=== PATIENT | male | born 1955 | race Caucasian/White ===

== ENCOUNTER 2022-07-13 08:30 | Emergency (ER) | payer OTHER ==
[~2022-07-13] VITALS: Ht 167.6 cm; Wt 72.6 kg
[2022-07-13 09:47] LABS: BASOPHILS ABSOLUTE AUTO 0.05 K/mm3 (0.00-0.23); BASOPHILS PERCENT AUTO 1 % (0-2); EOSINOPHILS ABSOLUTE AUTO 0.21 K/mm3 (0.00-0.68); EOSINOPHILS PERCENT AUTO 3 % (0-6); Hematocrit 44.7 % (37.0-53.0); Hemoglobin 15.6 g/dL (13.5-17.5); IMMATURE GRAN ABSOLUTE AUTO 0.02 K/mm3 (0.00-0.10); IMMATURE GRAN PERCENT AUTO 0 % (0-1); LYMPHOCYTES ABSOLUTE AUTO 1.17 K/mm3 (0.84-5.20); LYMPHOCYTES PERCENT AUTO 15 % (21-46); MONOCYTES ABSOLUTE AUTO 0.58 K/mm3 (0.16-1.47); MONOCYTES PERCENT AUTO 8 % (4-13); Mean Corpuscular HGB 32.5 pg (26.0-34.0); Mean Corpuscular HGB Conc 34.9 g/dL (31.5-36.5); Mean Corpuscular Volume 93 fL (80-100); Mean Platelet Volume 9.7 fL (9.1-12.4); NEUTROPHILS PERCENT AUTO 73 % (41-73); Platelet Count 299 K/mm3 (150-400); RDW Coefficient Variation 13.6 % (11.7-14.2); RDW Standard Deviation 46.8 fL (35.1-46.3); White Blood Cell Count 7.63 K/mm3 (4.00-11.30)
[2022-07-13 09:57] LABS: Albumin, Blood 3.8 g/dL (3.4-5.0); Albumin/Globulin Ratio 1.1 (0.8-1.8); Bilirubin, Total 0.5 mg/dL (0.1-1.0); Bun/Creatinine Ratio 15.1 (12.0-20.0); Calcium, Blood 8.8 mg/dL (8.5-10.1); Creatinine, Blood 0.86 mg/dL (0.60-1.20); Globulin, Blood 3.5 g/dL (2.2-4.0); Potassium, Blood 4.3 mmol/L (3.5-5.5); Total Protein, Blood 7.3 g/dL (6.4-8.2)
[2022-07-13] MEDS ORDERED: Prednisone20 MG PO (12:05)
[2022-07-13] MEDS ORDERED: Indomethacin50 MG PO (12:05)
== END 2022-07-13 12:15 | disposition home or self-care (01) ==
LOC: ER 08:30
PROVIDERS: Physician Assistant
DX: R07.89 Other chest pain (principal); M25.561 Pain in right knee; M10.9 Gout, unspecified
CPT/HCPCS: 71045; 80053; 84484; 85025; 93005; 93010; 99285-25; A9270; J7512

== ENCOUNTER 2022-10-10 06:34 | Day surgery (SDC) | payer OTHER ==
[~2022-10-10] VITALS: Ht 167.6 cm; Wt 79.8 kg
[~2022-10-10 06:34] MED LIST: ASPI81CH PO; Indomethacin50 MG PO; Isosorbide Mono30 MG PO; METO25ER PO; Prednisone20 MG PO
--- NOTE | 2022-10-10 11:00 | NUR ---
Patient arrived to recovery room, alert and oriented. R radial access site C/D/I, soft/nontender, noevidence of hematoma. TR band fully inflated. VSS on room air.
--- NOTE | 2022-10-10 11:36 | NUR ---
Patient ambulating to bathroom without difficulty. Patient voiding without difficulty. Patient tolerated PO intake well. R radial site C/D/I soft/nontender, no evidence of hematoma. VSS on room air.
[2022-10-10] MEDS ORDERED: METO50ER PO (11:46)
[2022-10-10] MEDS ORDERED: ATOR80 PO (11:47)
--- NOTE | 2022-10-10 12:00 | NUR ---
2 CC OF AIR REMOVED FROM TR BAND. R RADIAL SITE C/D/I, SOFT/NONTENDER, NO EVIDENCE OF HEMATOMA. PATIENT SITTING UPRIGHT IN RECLINER, CONVERSING APPROPRIATELY. VSS ON ROOM AIR AND TOLERATING PO INTAKE WELL. PATIENT DENYING ANY CHEST PAIN.
--- NOTE | 2022-10-10 12:30 | NUR ---
Patient discharge instructions reviewed with patient. All questions were answered. Prescriptions called to [facility] pharmacy. TR band in place, site C/D/I, soft/nontender, no evidence of hematoma. VSS on room air
--- NOTE | 2022-10-10 12:48 | NUR ---
pt ambulated to restroom w/o assistance.
--- NOTE | 2022-10-10 12:57 | NUR ---
tr band fully deflated. no bleeding noted. site soft and non-tender per pt.
--- NOTE | 2022-10-10 13:30 | NUR ---
pt given dc instructions and verbalized understanding. iv out. pt changed into clothes. cloth dot, arm board and sling applied. pt taken to [facility] via w[facility]. friend to take pt home.
== END 2022-10-10 12:45 | disposition home or self-care (01) ==
LOC: ECHO 06:34 → MHTC 06:34 → ECHO 07:00 → EDSTATUS 07:00 → MHTC 09:05
DX: I25.118 Atherosclerotic heart disease of native coronary artery with other forms of angina pectoris (principal); E78.5 Hyperlipidemia, unspecified; F17.200 Nicotine dependence, unspecified, uncomplicated; I10 Essential (primary) hypertension
CPT/HCPCS: 76937; 93458; 99152; 99153; A9270; C1769; C1887; C1894; J1644; J2250; J3010; J7030; J7050; Q9967

== ENCOUNTER 2022-10-10 07:00 | Day surgery (SDC) | payer OTHER ==
[2022-10-10] MEDS ORDERED: METO50ER PO (11:46)
[2022-10-10] MEDS ORDERED: ATOR80 PO (11:47)
== END 2022-10-16 23:09 | disposition home or self-care (01) ==
LOC: MHTC 07:00
DX: I25.119 Atherosclerotic heart disease of native coronary artery with unspecified angina pectoris (principal); E78.5 Hyperlipidemia, unspecified; F17.200 Nicotine dependence, unspecified, uncomplicated
CPT/HCPCS: 93306

== ENCOUNTER 2023-01-31 09:42 | Inpatient (IN) | payer OTHER ==
[2023-01-31] VITALS (18 sets, daily range): BP systolic 82–129; BP diastolic 36–103
[~2023-01-31] VITALS: Ht 167.6 cm; Wt 83.6 kg
[~2023-01-31 09:42] MED LIST changes: +ATOR80 PO; +METO50ER PO
[2023-01-31 11:13] LABS: BASOPHILS ABSOLUTE AUTO 0.05 K/mm3 (0.00-0.23); BASOPHILS PERCENT AUTO 0 % (0-2); EOSINOPHILS PERCENT AUTO 0 % (0-6); Hematocrit 36.1 % (37.0-53.0); Hemoglobin 12.1 g/dL (13.5-17.5); IMMATURE GRAN ABSOLUTE AUTO 0.15 K/mm3 (0.00-0.10); IMMATURE GRAN PERCENT AUTO 1 % (0-1); LYMPHOCYTES ABSOLUTE AUTO 0.61 K/mm3 (0.84-5.20); LYMPHOCYTES PERCENT AUTO 4 % (21-46); MONOCYTES PERCENT AUTO 8 % (4-13); Mean Corpuscular HGB 32.9 pg (26.0-34.0); Mean Corpuscular HGB Conc 33.5 g/dL (31.5-36.5); Mean Corpuscular Volume 98 fL (80-100); Mean Platelet Volume 10.1 fL (9.1-12.4); NEUTROPHILS ABSOLUTE AUTO 11.81 K/mm3 (1.96-9.15); NEUTROPHILS PERCENT AUTO 86 % (41-73); NRBC ABSOLUTE 0.19 K/mm3 (0.00-0.02); NRBC Auto 1.4 /100 WBC (0.0-0.2); Platelet Count 277 K/mm3 (150-400); RDW Coefficient Variation 19.9 % (11.7-14.2); RDW Standard Deviation 69.1 fL (35.1-46.3); Red Blood Cell Count 3.68 M/mm3 (4.30-5.90); White Blood Cell Count 13.72 K/mm3 (4.00-11.30)
[2023-01-31 11:41] LABS: Albumin, Blood 2.1 g/dL (3.4-5.0); Albumin/Globulin Ratio 0.6 (0.8-1.8); Bilirubin, Direct 7.8 mg/dL (0.0-0.3); Bilirubin, Indirect 1.7 mg/dL (0.1-0.7); Bilirubin, Total 9.5 mg/dL (0.1-1.0); Bun/Creatinine Ratio 25.3 (12.0-20.0); Calcium, Blood 8.1 mg/dL (8.5-10.1); Creatinine, Blood 1.86 mg/dL (0.60-1.20); Globulin, Blood 3.5 g/dL (2.2-4.0); Magnesium, Blood 2.6 mg/dL (1.6-2.4); Potassium, Blood 5.5 mmol/L (3.5-5.5); Total Protein, Blood 5.6 g/dL (6.4-8.2)
[2023-01-31 15:36] LABS: International Normalized Ratio 1.19; Prothrombin Time Results 12.4 Sec (9.7-11.5)
[2023-01-31] MEDS ORDERED: METO25 PO (17:27)
--- NOTE | 2023-01-31 17:55 | NUR ---
arrival to pcu/shift summary patient arrived from ed via gurney and transported to pcu bed via slider sheet. patient is alert and oriented x4. perrla. patient reports no chest pain/pressure, no shortness of breath. patient reports left abdonminal pain rated at a 8 and received pain medications per emar, which brought the pain level down to 3. patient is jaundice in appearance. patient has scar/scab from bypass three weeks ago on chest, left arm, left knee. patient has scabs on abd from procedure. see admit assessment for more detials. patient has a bolus of fluid going for soft blood pressure. blood pressure improving with bolus. see vital signs section. tele sr 67. spo2 >95% on room air. plan of care is up to date. call light within reach. friends at bedside.
--- NOTE | 2023-01-31 22:52 | NUR ---
Contacted resident over patients BP not responding to the 3L LR bolus patient got prior to nightshift, along with 2 bags of albumin and maintenance LR at 100ml/hr. Patient is very painful t/o abdomen, jaundiced, having nausea/vomiting and poor circulation to extremities. Patient medicated for pain and given heating pad with minimal effect. Order for transfer to ICU8 obtained, report given to HERIBERTO Akbar.
[2023-02-01] VITALS (110 sets, daily range): BP systolic 79–146; BP diastolic 31–149
--- NOTE | 2023-02-01 00:08 | NUR ---
ARRIVAL TO ICU PT ARRIVED TO ICU 8 AT 5 FROM PCU D/T HYPOTENSION. LEVOPHED STARTED AND TITRATED UP TO 4MCG/MIN, GOAL IS TO HAVE MAP >60. HE IS A/O X4 AND ABLE TO MAKE HIS NEEDS KNOWN. PT RATING 8/10 ABD PAIN; PRN FENTANYL TO BE GIVEN. SPO2 >95% ON RA. HR NSR WITH RATE 70'S. MOD-SEVERE ABD DISTENTION NOTED WITH PAIN IN THE RUQ, LUQ, AND LLQ. BLADDER SCAN DONE THAT SHOWED 128ML. LR INFUSING AT 250ML/HR. SEE SHIFT ASSESSMENT FOR FULL ASSESSMENT.
[2023-02-01 03:04] LABS: BASOPHILS ABSOLUTE AUTO 0.03 K/mm3 (0.00-0.23); BASOPHILS PERCENT AUTO 0 % (0-2); EOSINOPHILS PERCENT AUTO 0 % (0-6); Hemoglobin 9.4 g/dL (13.5-17.5); IMMATURE GRAN ABSOLUTE AUTO 0.11 K/mm3 (0.00-0.10); IMMATURE GRAN PERCENT AUTO 1 % (0-1); LYMPHOCYTES ABSOLUTE AUTO 0.39 K/mm3 (0.84-5.20); LYMPHOCYTES PERCENT AUTO 4 % (21-46); MONOCYTES ABSOLUTE AUTO 0.83 K/mm3 (0.16-1.47); MONOCYTES PERCENT AUTO 8 % (4-13); Mean Corpuscular HGB 33.1 pg (26.0-34.0); Mean Corpuscular HGB Conc 32.4 g/dL (31.5-36.5); Mean Corpuscular Volume 102 fL (80-100); Mean Platelet Volume 10.5 fL (9.1-12.4); NEUTROPHILS ABSOLUTE AUTO 8.58 K/mm3 (1.96-9.15); NEUTROPHILS PERCENT AUTO 86 % (41-73); NRBC ABSOLUTE 0.29 K/mm3 (0.00-0.02); NRBC Auto 2.9 /100 WBC (0.0-0.2); Platelet Count 215 K/mm3 (150-400); RDW Coefficient Variation 19.5 % (11.7-14.2); Red Blood Cell Count 2.84 M/mm3 (4.30-5.90); White Blood Cell Count 9.94 K/mm3 (4.00-11.30)
--- NOTE | 2023-02-01 03:54 | NUR ---
UPDATE CALL MADE TO DR LOUISE. PT IS RESTLESS AND "MISERABLE", HE ONLY SLEEPS FOR ABOUT 30MIN AT A TIME AND THEN WAKES UP MOANING; PRN FENTANYL GIVEN AND MILDLY HELPFUL BRINGING PAIN DOWN FROM A 7 TO 5; PT WILL SIT UP AT THE EDGE OF THE BED AND THEN LAY BACK DOWN FREQUENTLY; WHEN ASKED IF HE NEEDS ANYTHING, HE STATES "I DON'T KNOW" FOLLOWED BY "I DON'T WANT TO " AND "THIS IS AWFUL". PT ALSO HAS EPISODES OF DYSPNEA, PT PLACED ON 2L NC WITH RELIEF. NEW ORDERS PROVIDED FOR PRN ATIVAN.
[2023-02-01 04:37] LABS: Albumin, Blood 2.7 g/dL (3.4-5.0); Albumin/Globulin Ratio 1.1 (0.8-1.8); Bilirubin, Total 9.1 mg/dL (0.1-1.0); Bun/Creatinine Ratio 21.9 (12.0-20.0); Calcium, Blood 7.2 mg/dL (8.5-10.1); Creatinine, Blood 2.56 mg/dL (0.60-1.20); Globulin, Blood 2.4 g/dL (2.2-4.0); Potassium, Blood 6.3 mmol/L (3.5-5.5); Total Protein, Blood 5.1 g/dL (6.4-8.2)
--- NOTE | 2023-02-01 04:57 | NUR ---
UPDATE CALL MADE TO DR DANI SAUNDERS CRITICAL POTASSIUM OF 6.3 THIS AM; ALSO INFORMED HIM OF DECREASE IN CO2, INCREASE IN CREATININE, DECREASE IN CA, AND DECREASE IN HBG. NEW ORDERS PROVIDED FOR CA GLUCONATE, REG INSULIN IV, AND 2 AMPS OF D50. MILD IMPROVEMENT FROM 0.5MG OF IV ATIVAN NOTED.
[2023-02-01 05:57] LABS: International Normalized Ratio 1.32; Prothrombin Time Results 13.6 Sec (9.7-11.5)
[2023-02-01 06:06] LABS: Source, Urine Straight Cath
[2023-02-01 06:15] LABS: Appearance, Urine Hazy (Clear); Blood, Urine 3+ (Neg); Color, Urine Amber (P-Yellow); Glucose Qualitative, Urine Neg (Neg); Ketones, Urine 1+ (Neg); Leukocyte Esterase, Urine 1+ (Neg); Nitrite, Urine Pos (Neg); Protein, Urine 3+ (Neg); Urobilinogen, Urine 2+ (Normal)
[2023-02-01 06:21] LABS: Bilirubin, Urine 3+ (Neg)
[2023-02-01 06:26] LABS: Amorphous Light (0-Heavy); Bacteria Many /hpf; Granular Casts 25-50 /lpf (0); Red Blood Cells, Urine 0-2 /hpf (0-2); Squamous Epithelial Cells Not Seen /hpf (Few); Transitional Epithelial Cells Few /hpf (0-Rare)
--- NOTE | 2023-02-01 07:23 | NUR ---
END OF SHIFT SUMMARY PT CONT TO FEEL "MISERABLE" AND MILDLY RESTLESS. HE DID NOT GET VERY MUCH SLEEP LAST NIGHT ONLY GETTING IN 30MIN NAPS AFTER PAIN MEDICATION GIVEN. HE IS A/OX4 BUT LETHARGIC. SPO2 >95% ON 2L NC. HR 70'S. BP CHALLENGING TO MAINTAIN; LEVOPHED INFUSING AT 8MCG/MIN; SBP NOW 100-110, DBP 40-50'S, MAP 60-68; 2+ EDEMA NOTED TO BILATERAL ANKLES AND NOW SLOWLY GOING UP TO HIS MID THIGH. ABD CONT TO BE DISTENDED AND PAINFUL; PRN FENTANYL GIVEN Q2HR WITH MILD RELIEF; PRN ZOFRAN AND REGAL GIVEN SEVERAL TIMES FOR NAUSEA, NO EMESIS; TOLERATING PO SIPS OF WATER AND ICE CHIPS WELL; NO BM THIS SHIFT; HYPOACTIVE BT. 2 BLADDER SCANS DONE THAT SHOWED <200ML IN BLADDER, STRAIGHT CATH DONE AND ONLY 70ML OF DARK CHRIS, CLOUDY URINE SENT TO LAB. LR INFUSING AT 250ML/HR. POWERGLIDE TO MARILU AND PIV IN RAC PATENT WITH + BLOOD RETURN FOR BOTH. CALL MADE TO DR LOUISE REGARDING INCREASE IN LACTIC ACID TO 8.6; NEW ORDERS PROVIDED FOR A GI, NEPHROLOGY, AND WEIGHER PRODUCTION CONSULT. REPORT GIVEN TO HERIBERTO ROWE.
[2023-02-01 09:30] LABS: Base Excess Venous -18.9 mmol/L; Bicarbonate Venous 11.1 mmol/L (24.0-30.0); PCO2 Venous 35.3 mmHg (38-42)
[2023-02-01 10:19] LABS: PO2 Arterial 367 mmHg (80-100)
[2023-02-01 11:13] LABS: HBSAG SCREEN Negative (Negative); HCV AB Non Reactive (Non Reactive); HEP A AB, IGM Negative (Negative); HEP B CORE AB, IGM Negative (Negative)
[2023-02-01 12:18] LABS: International Normalized Ratio 1.32; Prothrombin Time Results 13.6 Sec (9.7-11.5)
[2023-02-01 12:21] LABS: PCO2 Arterial 28.2 mmHg (35-45); PO2 Arterial 307 mmHg (80-100)
[2023-02-01 12:22] LABS: pH Blood Arterial 7.18 (7.35-7.45)
--- NOTE | 2023-02-01 12:42 | NUR ---
SUMMARY OF MORNING EVENTS: ASSUMED CARE OF LESLIE AT 0700, HE WAS MOANING AND UNCOMFORTABLE. HE WAS COMPLAINING OF PAIN ABOUT HIS CHEST AND ABDOMEN. MEDICATED WITH FENTANYL 50MCG WITH SOME MINOR RELIEF. PT VERY APPROPRIATE, ORIENTED AND ABLE TO COMMUNICATE. HE WAS COMPLAINING OF SHORTNESS OF BREATH, HIS LUNG SOUNDS WERE DIMISSED WITH SOME AUDIBLE EXP. WHEEZING. THE MORNING CONTINUED AND HE WAS SPEAKING WITH THE PROVIDERS WHILE MAKING ROUNDS HE CONTINUED TO BECOME MORE RESTLESS AND UNCOMFORTABLE. A WAGGONER CATHETER WAS PLACED PER ORDER FOR STRICT I/O, HE WAS CONTINUING TO FEEL LIKE HE NEEDED TO URINATE, TEACHING DONE. CONTINUED TO BE MORE ANXIOUS AND RESTLESS, BEGAN WHEEZING AND FINE CRACKLES AUSCULTATED. DR. HUNTER IN ROOM, SPOKE WITH PT ABOUT INTUBATION AND WANTING "EVERYTHING DONE" PT WAS THEN PREPARED, MEDICATED WITH ETOMIDATE 20MG ROCURONIUM 80MG AT 0936, INTUBATED W/ 8.0 ETT, 26CM @ TEETH, W/ +COLOR CHANGE, +BS. PT WAS THEN STARTED ON PROPOFOL @ 15MCG/KG. CENTRAL LINE WAS PLACED, QUAD LUMEN IN RIGHT NECK BY DR. HUNTER. XRAY CAME AND CONFIRMED PLACEMENT. PT'S VENT SETTINGS HAVE BEEN TITRATED TO ABG/VBG'S RATE 28, TV 500, PEEP 7 AND 55%. IT IS DIFFICULT TO OBTAIN A READING FROM THE PULSE OXIMETER AND ATTEMPTS WERE MADE TO TITRATE THE VENT. OXYGEN TO COMPENSATE, FINDING AFTER ABG THAT THE OXYGEN WAS >300. PT HAS STILL HAD NO URINE OUTPUT, THERE IS SOME "CONDENSATION" VISIBLE IN THE TUBING. PT'S LABS HAVE COME BACK AND IT HAS BEEN DISCUSSED WITH NEPHRO TO START DIALYSIS.
[2023-02-01 13:02] LABS: Alanine Aminotransfer (ALT/SGP 957 U/L (12-78); Albumin, Blood 2.6 g/dL (3.4-5.0); Anion Gap 18 mmol/L (6-16); Bilirubin, Total 8.5 mg/dL (0.1-1.0); Blood Urea Nitrogen 59 mg/dL (8-24); Bun/Creatinine Ratio 19.5 (12.0-20.0); CO2, Blood 13 mmol/L (21-32); Calcium, Blood 7.2 mg/dL (8.5-10.1); Chloride, Blood 99 mmol/L (98-108); Creatinine, Blood 3.03 mg/dL (0.60-1.20); Globulin, Blood 2.6 g/dL (2.2-4.0); Glomerular Filtration Rate 22 (60-); Glucose, Blood 101 mg/dL (70-99); Sodium, Blood 130 mmol/L (136-145); Total Protein, Blood 5.2 g/dL (6.4-8.2)
[2023-02-01 13:07] LABS: Alk Phos 1475 U/L (50-136); Aspartate Aminotrans (AST/SGOT >20000 U/L (12-37); Potassium, Blood 6.5 mmol/L (3.5-5.5)
[2023-02-01 18:38] LABS: BASOPHILS ABSOLUTE AUTO 0.02 K/mm3 (0.00-0.23); BASOPHILS PERCENT AUTO 0 % (0-2); EOSINOPHILS PERCENT AUTO 0 % (0-6); Hematocrit 26.2 % (37.0-53.0); Hemoglobin 8.8 g/dL (13.5-17.5); IMMATURE GRAN ABSOLUTE AUTO 0.25 K/mm3 (0.00-0.10); IMMATURE GRAN PERCENT AUTO 2 % (0-1); LYMPHOCYTES ABSOLUTE AUTO 0.33 K/mm3 (0.84-5.20); LYMPHOCYTES PERCENT AUTO 3 % (21-46); MONOCYTES ABSOLUTE AUTO 0.57 K/mm3 (0.16-1.47); MONOCYTES PERCENT AUTO 6 % (4-13); Mean Corpuscular HGB 33.2 pg (26.0-34.0); Mean Corpuscular HGB Conc 33.6 g/dL (31.5-36.5); Mean Corpuscular Volume 99 fL (80-100); Mean Platelet Volume 10.6 fL (9.1-12.4); NEUTROPHILS ABSOLUTE AUTO 9.17 K/mm3 (1.96-9.15); NEUTROPHILS PERCENT AUTO 89 % (41-73); NRBC Auto 9.7 /100 WBC (0.0-0.2); Platelet Count 174 K/mm3 (150-400); RDW Coefficient Variation 18.3 % (11.7-14.2); RDW Standard Deviation 64.1 fL (35.1-46.3); Red Blood Cell Count 2.65 M/mm3 (4.30-5.90); White Blood Cell Count 10.34 K/mm3 (4.00-11.30)
[2023-02-01 18:55] LABS: PO2 Arterial 166 mmHg (80-100); pH Blood Arterial 7.45 (7.35-7.45)
[2023-02-01 19:03] LABS: Albumin, Blood 2.5 g/dL (3.4-5.0); Albumin/Globulin Ratio 0.9 (0.8-1.8); Bilirubin, Total 8.7 mg/dL (0.1-1.0); Bun/Creatinine Ratio 17.5 (12.0-20.0); Calcium, Blood 8.1 mg/dL (8.5-10.1); Creatinine, Blood 1.83 mg/dL (0.60-1.20); Globulin, Blood 2.7 g/dL (2.2-4.0); Total Protein, Blood 5.2 g/dL (6.4-8.2)
[2023-02-01 19:04] LABS: Potassium, Blood 4.4 mmol/L (3.5-5.5)
--- NOTE | 2023-02-01 19:34 | NUR ---
SUMMARY: ONCE DECISION MADE TO DIALYZE, PLACED A RIGHT FEMORAL TRIALYSIS CATHETER. CHELSEA WAS NOTIFIED THAT PT WAS READY FOR DIALYSIS. VASOPRESSIN WAS ADDDED TO HIS DRIPS, HE TOLERATED THE DIALYSIS WITHOUT INCIDENT. HE DID HAVE A COUPLE MORE EPISODE WHERE IT "LOOKED LIKE" THE SATS WERE DROPPING, BUT THE ABG PROVED THAT THE OXYGEN WAS HIGHER. HE CONTINUES ON PROPOFOL @ 15MCG/KG, LEVO @ 12MCG/MIN AND VASO @ 0.04. HE IS ALERT ENOUGH TO ANSWER AND RESPOND APPROPRIATELY, "FAMILY" CAME IN TO VISIT AND WAS GETTING HIM UNSETTLED, THEY WERE ASKED TO LEAVE AND ALLOW PT TO REST. HE RESPONDS WELL TO REPOSITIONING AND TO PAIN MEDICATION, WITH LIMITED STIMULUS. REPORT GIVEN TO CARLOS Austin RN.
--- NOTE | 2023-02-01 22:00 | NUR ---
ASSUMED CARE AT 1900 PT INTUBATED AND SEDATED LAYING IN BED. PT SEDATED WITH PROPOFOL INFUSING AT 20MCG/KG/MIN; HE IS ABLE TO ANSWER Y/N QUESTIONS WITH HEAD NODS; WITH TOO MUCH STIMULUS PT WILL BECOME INCREASINGLYRESTLESS; PRN FENTANYL AVAILABLE FOR PAIN AND PRN ATIVAN AVAILABLE FOR AGITATION. VENT SETTINGS AC/VC+ 24/480/7/50%. HR 80'S; SBP 120'S; LEVOPHED INFUSING AT 10MCG/MIN; VASOPRESSIN INFUSING AT 0.04UNITS/MIN. EDEMA NOTED TO BLE AND BUE. ABD CONT TO BE DISTENDED; OG IN PLACE TO LIS. WAGGONER IN PLACE WITH <10ML OUTPUT SINCE BEING PLACED; TRIALYSIS CATH TO RT GROIN NOTED; DIALYSIS OCCURED EARLIER TODAY. JAUNDICE COLORING NOTED. CENTRAL LINE TO RT IJ DRESSING SOILED; DRESSING CHANGE OCCURED. CBG DONE SHOWING GLUCOSE AT 70; CALL MADE TO EDGE INKER [facility]ELS WHO PROVIDED NEW ORDERS TO STOP BICARB GTT AND START D10 GTT AT 50ML/HR. SEE SHIFT ASSESSMENT FOR FULL ASSESSMENT.
[2023-02-02] VITALS (80 sets, daily range): BP systolic 60–148; BP diastolic 23–124
--- NOTE | 2023-02-02 | NUR ---
UPDATE PT BP IMPROVING; LEVOPHED TITRATED DOWN TO 6MCG/MIN; PLAN TO PLACE VASOPRESSIN ON SB.
--- NOTE | 2023-02-02 01:00 | NUR ---
UPDATE CALL MADE TO EXECUTIVE OFFICER REGARDING LACTIC ACID LAB OF 11.4. NO NEW ORDERS AT THIS TIME.
[2023-02-02 01:17] LABS: Albumin, Blood 2.3 g/dL (3.4-5.0); Bilirubin, Total 8.5 mg/dL (0.1-1.0); Bun/Creatinine Ratio 15.4 (12.0-20.0); Calcium, Blood 7.4 mg/dL (8.5-10.1); Creatinine, Blood 2.46 mg/dL (0.60-1.20); Globulin, Blood 2.4 g/dL (2.2-4.0); Potassium, Blood 5.6 mmol/L (3.5-5.5); Total Protein, Blood 4.7 g/dL (6.4-8.2)
[2023-02-02 03:52] LABS: NRBC Auto 14.9 /100 WBC (0.0-0.2)
[2023-02-02 04:05] LABS: Hematocrit 24.8 % (37.0-53.0); Hemoglobin 7.9 g/dL (13.5-17.5); Mean Corpuscular HGB 34.8 pg (26.0-34.0); Mean Corpuscular HGB Conc 31.9 g/dL (31.5-36.5); NRBC ABSOLUTE 1.62 K/mm3 (0.00-0.02); Platelet Count 132 K/mm3 (150-400); RDW Coefficient Variation 18.7 % (11.7-14.2); Red Blood Cell Count 2.27 M/mm3 (4.30-5.90); White Blood Cell Count 10.86 K/mm3 (4.00-11.30)
[2023-02-02 04:18] LABS: Mean Corpuscular Volume 109 fL (80-100)
[2023-02-02 04:24] LABS: PCO2 Arterial 28.2 mmHg (35-45); PO2 Arterial 281 mmHg (80-100)
[2023-02-02 04:25] LABS: pH Blood Arterial 7.17 (7.35-7.45)
[2023-02-02 04:27] LABS: Magnesium, Blood 2.6 mg/dL (1.6-2.4)
[2023-02-02 04:37] LABS: Alanine Aminotransfer (ALT/SGP 1421 U/L (12-78); Albumin, Blood 2.2 g/dL (3.4-5.0); Albumin/Globulin Ratio 0.9 (0.8-1.8); Alk Phos 1480 U/L (50-136); Anion Gap 25 mmol/L (6-16); Aspartate Aminotrans (AST/SGOT 8657 U/L (12-37); Bilirubin, Total 8.6 mg/dL (0.1-1.0); Blood Urea Nitrogen 38 mg/dL (8-24); Bun/Creatinine Ratio 13.7 (12.0-20.0); CO2, Blood 12 mmol/L (21-32); CPK Creatine Kinase 1541 U/L (39-308); Calcium, Blood 7.5 mg/dL (8.5-10.1); Chloride, Blood 94 mmol/L (98-108); Creatinine, Blood 2.77 mg/dL (0.60-1.20); Globulin, Blood 2.5 g/dL (2.2-4.0); Glomerular Filtration Rate 24 (60-); Glucose, Blood 66 mg/dL (70-99); Phosphorus, Blood 7.5 mg/dL (2.5-4.9); Potassium, Blood 6.6 mmol/L (3.5-5.5); Sodium, Blood 131 mmol/L (136-145); Total Protein, Blood 4.7 g/dL (6.4-8.2); Vancomycin, Random 15.9 ug/mL
[2023-02-02 04:40] LABS: BAND PERCENT MAN 19 % (0-8); BASOPHILS PERCENT MAN 1 % (0-2); EOSINOPHILS PERCENT MAN 0 % (0-6); LYMPHOCYTES ABSOLUTE MAN 0.97 K/mm3 (0.84-5.20); LYMPHOCYTES PERCENT MAN 9 % (21-46); METAMYELOCYTE PERCENT MAN 1 % (0-0); MONOCYTES ABSOLUTE MAN 0.86 K/mm3 (0.16-1.47); MONOCYTES PERCENT MAN 8 % (4-13); NEUTROPHILS ABSOLUTE MAN 8.79 K/mm3 (1.96-9.15); SEG NEUTROPHILS PERCENT MAN 62 % (41-73); TOTAL CELLS COUNTED 100
--- NOTE | 2023-02-02 04:54 | NUR ---
UPDATE WHILE DRAWING AM LABS FROM POWERGLIDE PT HAS BECOME LESS RESPONSIVE, AGONAL LIKE BREATHS WHILE ON THE VENT, A DECREASE IN BP WITH MAP INTO THE 30'S, AND A DECREASE IN HR INTO THE 60'S FROM THE 80'S. CALLS MADE TO DR LOUISE TO COME TO BEDSIDE AND CALL MADE TO LINING INSERTER. CBG AND VBG COMPLETED WITH GLUCOSE RESULTING AT 67 AND pH OF 7.12. NEW ORDERS PROVIDED FROM BOTH DR LOUISE AND LINING INSERTER. LEVOPHED TITRATED UP TO 15MCG/MIN; VASOPRESSIN INFUSING AT 0.04UNITS/MIN; BICARB GTT RESTARTED AT 100ML/HR; D10 GTT DECREASED TO 20ML/HR; BICARB PUSH GIVEN; CALCIUM GLUCONATE GIVEN; VENT CHANGES ALSO MADE TO PS 14/5, SET RR 30, FIO2 40%. AM LAB RESULTS ALSO SHOWED A POTASSIUM OF 6.6; AN ADDITIONAL CALL MADE TO LINING INSERTER WHO PROVIDED RT WITH ORDERS. PLAN FOR DIALYSIS THIS AM.
[2023-02-02 05:04] LABS: Base Excess Venous -17.6 mmol/L; Bicarbonate Venous 11.6 mmol/L (24.0-30.0); PCO2 Venous 36 mmHg (38-42); PO2 Venous 47 mmHg (38-42); pH Blood Venous 7.12 (7.34-7.37)
[2023-02-02 06:31] LABS: International Normalized Ratio 1.65; Prothrombin Time Results 16.8 Sec (9.7-11.5)
[2023-02-02 07:05] LABS: Alanine Aminotransfer (ALT/SGP 1527 U/L (12-78); Albumin, Blood 2.1 g/dL (3.4-5.0); Alk Phos 1456 U/L (50-136); Anion Gap 28 mmol/L (6-16); Aspartate Aminotrans (AST/SGOT <3 U/L (12-37); Bilirubin, Total 8.2 mg/dL (0.1-1.0); Blood Urea Nitrogen 40 mg/dL (8-24); Bun/Creatinine Ratio 13.8 (12.0-20.0); CO2, Blood 10 mmol/L (21-32); Calcium, Blood 7.5 mg/dL (8.5-10.1); Chloride, Blood 94 mmol/L (98-108); Globulin, Blood 2.1 g/dL (2.2-4.0); Glomerular Filtration Rate 23 (60-); Glucose, Blood 102 mg/dL (70-99); Potassium, Blood 6.7 mmol/L (3.5-5.5); Sodium, Blood 132 mmol/L (136-145); Total Protein, Blood 4.2 g/dL (6.4-8.2)
--- NOTE | 2023-02-02 07:05 | NUR ---
Assumed care of pt at 0700. Report received from Naomie Austin RN. Pt receiving propofol at 10 mcg/kg/min for comfort and ventilator tolerance. RASS -4, according to offgoing nurse, pt has not been able to answer yes/no questions for follow commands since mid retail shift manager. Levophed at 15 mcg/min for goal MAP 65. Dr Mullen at bedside preparing for arterial line insertion in L femoral artery. 8.0 cm ETT at expected placement of 26 cm at teeth. Ventilator settings ACPC 28, 18/5, 40% FiO2. SpO2 unmeasureable. ETCO2 15.
--- NOTE | 2023-02-02 07:26 | NUR ---
END OF SHIFT SUMMARY SINCE LAST NOTE, FINANCIAL COMPLIANCE MANAGER AT BED SIDE. CHEST XRAY DONE AND ART LINE BEING PLACED DURING SHIFT CHANGE. PT CONT TO NOT BE RESPONSIVE TO VERBAL STIMULI, NOT FOLLOWING DIRECTIONS. CONT TO BE ON THE VENT ON PS WITH RATE 28, PEEP 5, AND FIO2 40%. HR 70-80'S, SBP AND MAP LABILE; LEVOPHED INFUSING AT 15MCG/MIN, VASOPRESSIN INFUSING AT 0.04UNITS/MIN. OG TO LIS; ABD DISTENDED. WAGGONER IN PLACE WITH MINIMAL OUTPUT, NOT ENOUGH OUTPUT TO SEND SAMPLE; PLAN FOR DIALIZE THIS AM. CONT TO BE JAUNDICE IN COLOR. CENTRAL LINE TO RIJ DRESSING CHANGED TWICE DURING SHIFT. POWERGLIDE AND PIV TO RUE PATENT AND DRAWS. TRIALYSIS CATH TO RT GROIN PATENT WITH DRESSING C/D/I. BICARB INFUSING AT 100ML/HR. D10 INFUSING AT 20ML/HR. PROPOFOL STARTED AGAIN AT 10MCG/KG/MIN FOR VENT COMPLIENCE. REPORT GIVEN TO AM RN.
[2023-02-02 07:36] LABS: PCO2 Arterial 27.1 mmHg (35-45); PO2 Arterial 95.1 mmHg (80-100); pH Blood Arterial 6.98 (7.35-7.45)
[2023-02-02 08:22] LABS: Glucose, Blood 117 mg/dL (70-99)
--- NOTE | 2023-02-02 09:00 | NUR ---
Bleeding noted from arterial line site. Dressing changed. Pt is laying flat in reverse trendelenberg with no hip flexion. Notified Dr Mullen. Provider held manual pressure and then placed sandbag weights. Pt is now on epinephrine as well as vasopressin and norepinephrine. Plan to continue with dialysis as patient tolerates. Dialysis nurse states she will be in to treat patient as soon as possible. Pt's next of kin, Lyly, called by Dr Lynch. Lyly, as well as pt's friends in to see patient and received update on patient's condition as well as plan of care.
[2023-02-02 09:38] LABS: Alanine Aminotransfer (ALT/SGP 1345 U/L (12-78); Albumin, Blood 1.5 g/dL (3.4-5.0); Albumin/Globulin Ratio 0.8 (0.8-1.8); Anion Gap 35 mmol/L (6-16); Aspartate Aminotrans (AST/SGOT 6864 U/L (12-37); Bilirubin, Total 6.6 mg/dL (0.1-1.0); Blood Urea Nitrogen 41 mg/dL (8-24); Bun/Creatinine Ratio 16.1 (12.0-20.0); CO2, Blood 8 mmol/L (21-32); Chloride, Blood 93 mmol/L (98-108); Creatinine, Blood 2.54 mg/dL (0.60-1.20); Glomerular Filtration Rate 27 (60-); Glucose, Blood 117 mg/dL (70-99); Potassium, Blood 7.1 mmol/L (3.5-5.5); Sodium, Blood 136 mmol/L (136-145); Total Protein, Blood 3.5 g/dL (6.4-8.2)
[2023-02-02 10:04] LABS: Mean Corpuscular HGB 34.2 pg (26.0-34.0); Mean Corpuscular HGB Conc 29.5 g/dL (31.5-36.5); Mean Platelet Volume 10.6 fL (9.1-12.4); NRBC ABSOLUTE 2.03 K/mm3 (0.00-0.02); Platelet Count 101 K/mm3 (150-400); RDW Coefficient Variation 18.5 % (11.7-14.2); RDW Standard Deviation 76.6 fL (35.1-46.3); Red Blood Cell Count 1.52 M/mm3 (4.30-5.90); White Blood Cell Count 11.28 K/mm3 (4.00-11.30)
[2023-02-02 10:10] LABS: Mean Corpuscular Volume 116 fL (80-100)
[2023-02-02 10:12] LABS: Hematocrit 17.6 % (37.0-53.0); Hemoglobin 5.2 g/dL (13.5-17.5)
[2023-02-02 10:44] LABS: Albumin, Blood 1.6 g/dL (3.4-5.0); Albumin/Globulin Ratio 0.8 (0.8-1.8); Bilirubin, Total 6.7 mg/dL (0.1-1.0); Bun/Creatinine Ratio 14.8 (12.0-20.0); Calcium, Blood 7.2 mg/dL (8.5-10.1); Creatinine, Blood 2.63 mg/dL (0.60-1.20); Globulin, Blood 1.9 g/dL (2.2-4.0); Total Protein, Blood 3.5 g/dL (6.4-8.2)
--- NOTE | 2023-02-02 11:00 | NUR ---
Critical H/H received. Plan to transfuse 3 units PRBCs with dialysis. Pt had low MAP. Provider gave verbal order to titrate vasopressors to maintain SBP greater than 110, instead of titrating to achieve MAP goal. Provider also stated that norephinephrine is max dose 25 mcg/min for this patient.
[2023-02-02 11:08] LABS: BAND PERCENT MAN 11 % (0-8); BASOPHILS ABSOLUTE MAN 0.11 K/mm3 (0.00-0.23); BASOPHILS PERCENT MAN 1 % (0-2); EOSINOPHILS PERCENT MAN 0 % (0-6); LYMPHOCYTES % ATYPICAL MANUAL 2 % (0-0); LYMPHOCYTES ABSOLUTE MAN 1.01 K/mm3 (0.84-5.20); LYMPHOCYTES PERCENT MAN 7 % (21-46); METAMYELOCYTE ABSOLUTE MAN 0.56 K/mm3 (0.00-0.00); METAMYELOCYTE PERCENT MAN 5 % (0-0); MONOCYTES ABSOLUTE MAN 0.33 K/mm3 (0.16-1.47); MONOCYTES PERCENT MAN 3 % (4-13); NEUTROPHILS ABSOLUTE MAN 9.24 K/mm3 (1.96-9.15); SEG NEUTROPHILS PERCENT MAN 71 % (41-73); TOTAL CELLS COUNTED 100
[2023-02-02 11:10] LABS: International Normalized Ratio 1.95; Prothrombin Time Results 19.7 Sec (9.7-11.5)
--- NOTE | 2023-02-02 13:00 | NUR ---
Bleeding from arterial line has increased. Remains a leak instead of pulsatile. Dr Mullen aware. Provider ordered 3 units FFP. Dressing is no longer intact because of bleeding. Plan to remove perform dressing change when 3rd unit of FFP is done.
--- NOTE | 2023-02-02 14:03 | NUR ---
Reviview of patient with nursing. Met with his friends for supportive visit and introduction. pt kps score is 20 to 30 %. Friends seem to understand they are still at watch and wait phase.
--- NOTE | 2023-02-02 15:00 | NUR ---
Dr Norris and Dr Mullen in to see patient as dialysis treatment finishing. Providers discussed plan of care with family as well. FFP infusing.
[2023-02-02 15:43] LABS: PCO2 Arterial 27.6 mmHg (35-45); PO2 Arterial 136 mmHg (80-100)
[2023-02-02 15:44] LABS: pH Blood Arterial 7.22 (7.35-7.45)
[2023-02-02 15:57] LABS: Mean Corpuscular HGB 28.9 pg (26.0-34.0); Mean Corpuscular HGB Conc 31.7 g/dL (31.5-36.5); Mean Platelet Volume 11.7 fL (9.1-12.4); NRBC ABSOLUTE 2.15 K/mm3 (0.00-0.02); NRBC Auto 21.2 /100 WBC (0.0-0.2); Platelet Count 55 K/mm3 (150-400); RDW Coefficient Variation 23.2 % (11.7-14.2); White Blood Cell Count 10.14 K/mm3 (4.00-11.30)
[2023-02-02 15:59] LABS: Mean Corpuscular Volume 91 fL (80-100)
[2023-02-02 16:01] LABS: Hematocrit 16.4 % (37.0-53.0); Hemoglobin 5.2 g/dL (13.5-17.5)
[2023-02-02 16:16] LABS: BAND PERCENT MAN 22 % (0-8); BASOPHILS PERCENT MAN 2 % (0-2); EOSINOPHILS PERCENT MAN 0 % (0-6); LYMPHOCYTES ABSOLUTE MAN 1.72 K/mm3 (0.84-5.20); LYMPHOCYTES PERCENT MAN 17 % (21-46); METAMYELOCYTE PERCENT MAN 5 % (0-0); MONOCYTES PERCENT MAN 3 % (4-13); MYELOCYTE PERCENT MAN 6 % (0-0); NEUTROPHILS ABSOLUTE MAN 6.79 K/mm3 (1.96-9.15); SEG NEUTROPHILS PERCENT MAN 45 % (41-73); TOTAL CELLS COUNTED 100
--- NOTE | 2023-02-02 17:34 | NUR ---
COMFORT CARE Dr Mullen in to see pt's visitors to give update that labs are indicative of DIC and to discuss goals of care. Met with several friends of patient, including next of kin on elinor, Lyly, and pt's caregiver Lu. Visitors came to unanimous agreement to make patient comfort care. Per Dr Mullen, plan on gradually deescalating care, beginning with vasopressors. To note, patient does not have any bilogical or marital family to refer to for decision making.
--- NOTE | 2023-02-02 19:15 | NUR ---
Patient at 1838. Notified Emigdio Mullen, Jonatan, and Myrna. Post mortem care performed. Notified next of kin, Lyly. Pt has belongings in the room and Lyly will pick them up tonight.
--- NOTE | 2023-02-02 19:21 | NUR ---
CRITICAL LAB VALUES Dr Mullen present in unit for majority of shift. All critical values discussed with him as they resulted either by this RN or battery charger.
[2023-02-04 07:13] LABS: COMPLEMENT C3, SERUM 84 mg/dL (82-167); COMPLEMENT C4, SERUM 14 mg/dL (12-38)
[2023-02-07 14:35] LABS: Potassium, Blood 7.4 mmol/L (3.5-5.5)
== END 2023-02-02 18:38 | DRG 441 ==
LOC: ER 09:42 → ICUE 14:47 → PCU 14:47 → ICUE 14:47 → PCU 15:59 → ICUE 23:14
PROVIDERS: Family Medicine; Hospitalist; Physician Assistant; Student in an Organized Health Care Education/Training Program; ADMIT Internal Medicine
PROC: 0BH17EZ Insertion of Endotracheal Airway into Trachea, Via Natural or Artificial Opening (ICD-10-PCS; principal; 2023-02-01)
PROC: 02HV33Z Insertion of Infusion Device into Superior Vena Cava, Percutaneous Approach (ICD-10-PCS; 2023-02-01)
PROC: 3E043XZ Introduction of Vasopressor into Central Vein, Percutaneous Approach (ICD-10-PCS; 2023-02-01)
PROC: 3E03329 Introduction of Other Anti-infective into Peripheral Vein, Percutaneous Approach (ICD-10-PCS; 2023-02-01)
PROC: 5A1935Z Respiratory Ventilation, Less than 24 Consecutive Hours (ICD-10-PCS; 2023-02-01)
PROC: 0T9B70Z Drainage of Bladder with Drainage Device, Via Natural or Artificial Opening (ICD-10-PCS; 2023-02-01)
PROC: 4A133R1 Monitoring of Arterial Saturation, Peripheral, Percutaneous Approach (ICD-10-PCS; 2023-02-01)
PROC: B548ZZA Ultrasonography of Superior Vena Cava, Guidance (ICD-10-PCS; 2023-02-01)
PROC: 04HY32Z Insertion of Monitoring Device into Lower Artery, Percutaneous Approach (ICD-10-PCS; 2023-02-01)
PROC: 4A133B1 Monitoring of Arterial Pressure, Peripheral, Percutaneous Approach (ICD-10-PCS; 2023-02-01)
PROC: 4A133J1 Monitoring of Arterial Pulse, Peripheral, Percutaneous Approach (ICD-10-PCS; 2023-02-01)
PROC: 0D9670Z Drainage of Stomach with Drainage Device, Via Natural or Artificial Opening (ICD-10-PCS; 2023-02-01)
PROC: 30233N1 Transfusion of Nonautologous Red Blood Cells into Peripheral Vein, Percutaneous Approach (ICD-10-PCS; 2023-02-02)
PROC: 30233K1 Transfusion of Nonautologous Frozen Plasma into Peripheral Vein, Percutaneous Approach (ICD-10-PCS; 2023-02-02)
PROC: 5A1D70Z Performance of Urinary Filtration, Intermittent, Less than 6 Hours Per Day (ICD-10-PCS; 2023-02-02)
DX: K72.00 Acute and subacute hepatic failure without coma (principal); A41.9 Sepsis, unspecified organism; J96.01 Acute respiratory failure with hypoxia; R65.21 Severe sepsis with septic shock; N17.0 Acute kidney failure with tubular necrosis; M62.82 Rhabdomyolysis; N39.0 Urinary tract infection, site not specified; E87.21 Acute metabolic acidosis; Z66 Do not resuscitate; D64.9 Anemia, unspecified; E87.5 Hyperkalemia; I10 Essential (primary) hypertension; B18.2 Chronic viral hepatitis C; E80.6 Other disorders of bilirubin metabolism; I25.10 Atherosclerotic heart disease of native coronary artery without angina pectoris; M10.9 Gout, unspecified; K40.90 Unilateral inguinal hernia, without obstruction or gangrene, not specified as recurrent; Z95.1 Presence of aortocoronary bypass graft; Z79.82 Long term (current) use of aspirin; Z79.899 Other long term (current) drug therapy; Z87.39 Personal history of other diseases of the musculoskeletal system and connective tissue; Z98.890 Other specified postprocedural states; Z87.891 Personal history of nicotine dependence
CPT/HCPCS: 31500; 36415; 36430; 36556; 36600; 36620; 51702; 71045; 74177; 76705; 80053; 80074; 80202; 81001; 82105; 82248; 82330; 82550; 82570; 82803; 82947; 83605; 83690; 83735; 83880; 84100; 84300; 84484; 84540; 84550; 85025; 85379; 85384; 85610; 85730; 86160; 86850; 86900; 86901; 86923; 87040; 87086; 93005; 93010; 93306; 94002; 94003; 94640; 94644; 94645; 94664; 96361; 96374-59; 96375; 96376; 99285-25; A9270; C1751; C1752; C9113; G0480; J0132; J0171; J0612; J0692; J1170; J1644; J1720; J1815; J2060; J2185; J2270; J2405; J2704; J2765; J3010; J3370; J7030; J7040; J7050; J7060; J7070; J7120; P9016; P9045; P9047; P9059; Q9967